=== PATIENT | male | born 1950 | race Caucasian/White ===

== ENCOUNTER → 2016-10-24 | Outpatient (CLI) | payer BC, OTHER | END | disposition home or self-care (01) | LOC: C.RDSM 12:32 | PROVIDERS: ATTEND Physical Medicine & Rehabilitation Sports Medicine | DX: M25.562 Pain in left knee (principal) ==

== ENCOUNTER 2021-03-05 07:01 | Observation (INO) ==
--- NOTE | 2021-02-23 09:49 | Anesthesiology Consultation ---
Date of Service February 23, 2021 Assessment & Plan (1) Encounter for pre-operative examination: Chart Review Chart Review: Acceptable Risk for Surgery and Patient NOT seen in Pre Admission Testing PLEASE NOTE CT SCAN FINDINGS: There is tracheal shift to the right and flattening and effacement of the left tracheal wall due to the large 4.6 cm thyroid nodule. Will order ECG DOS to see if patient is back in NSR. Consults Requested none History Surgery Operation Date: 03/05/21 07:15 Proposed Procedures p Left Thyroid Lobectomy - Raquel Canas MD Height/Weight Height: 6 ft 2 in Weight: 102.058 kg Allergies Allergy/AdvReac Type Severity Reaction Status Date / Time house dust mite Allergy Verified 02/22/21 16:03 No Known Drug Allergies Allergy Verified 02/22/21 16:03 Medications Home Medications Medication Instructions Recorded Confirmed Last Taken levalbuterol tartrate 45 1 puffs INH Q6H PRN 01/22/19 02/22/21 Unknown mcg/actuation aerosol inhaler (Xopenex HFA) glucos sul [id number] 2 cap PO BID 01/21/20 02/22/21 Unknown [Glucosamine Chondroitin] magnesium 200 mg PO BID 01/21/20 02/22/21 Unknown metoprolol succinate 25 mg 25 mg PO DAILY PRN 02/22/21 02/22/21 Unknown tablet,extended release 24 hr rivaroxaban 20 mg tablet (Xarelto) 20 mg PO QPM 02/22/21 02/22/21 Unknown Past Medical History Medical History (Updated 02/23/21 @ 09:46 by Armand Baires MD) Anticoagulant long-term use Bradycardia per pt, normal for him to run in 40s when in NSR. reports weekly episodes of A.fib and takes PRN metoprolol Encounter for pre-operative examination Osteoarthritis Paroxysmal A-fib follows with Dr. Garcia; on Xarelto Thyroid goiter Cardiology visit 01/26/21: 70-year-old man with intermittently recurrent paroxysmal atrial fibrillation who has fairly frequent but minimally symptomatic episodes of presumed recurrent atrial fibrillation. We reviewed intermittent and varying dose of beta-saulo when he is in atrial fibrillation, tapering the dose when he is in sinus rhythm to avoid bradycardia. He has not had any symptoms to indicate pacemaker placement would be imminent, but knows of the warning symptoms and the future likelihood a pacemaker will be necessary. We had previously discussed alternatives including antiarrhythmics and atrial fibrillation ablation, however his current symptoms remain minimal and continued conservative management with variable beta-blockade will be pursued for now. [id number] score of 2 (hypertension, age), risk of thromboembolic event is 2.2%. Since his risk of serious bleeding on Xarelto is in the 1% range, and he has had no bleeding issues, continue Xarelto use. Past Family History Family History Brother Hypertension Father Cancer Mother Asthma Other No family history of adverse response to anesthesia No family history of bleeding disorder Past Surgical History Surgical History History of colonoscopy History of foot surgery Rt History of torn meniscus of left knee Repaired 2009 Quadriceps tendon rupture Lt - repaired S/P Achilles tendon repair Lt S/P thyroid biopsy benign Social History Smoking Status: Never smoker Do You Dip or Chew Tobacco: No Hx Alcohol Use: Yes Alcohol type: beer alcohol intake frequency: a few times a week Hx Substance Use: No substance use type: does not use Testing Laboratory Results Laboratory Tests 02/22/21 02/22/21 02/22/21 07:16 07:16 07:16 WBC 6.68 Hgb 16.6 Hct 48.6 Plt Count 283 PT 10.7 INR 1.1 APTT 32.5 H Sodium 140 Potassium 4.2 Chloride 107 Carbon Dioxide 27 Electrocardiogram Date: 09/03/20 A fib. HR 90.
--- NOTE | 2021-03-04 14:59 | History & Physical Report ---
Date of Service March 04, 2021 Assessment & Plan (1) Left thyroid nodule: Plan: For left thyroid lobectomy. Cleared for surgery by cardiology. To hold Xarelto for 2 days prior to surgery. I explained the risks to the patient and his and they both desire to proceed with surgery. (2) Paroxysmal A-fib: (3) Anticoagulant long-term use: History of Present Illness Chief Complaint: Left thyroid nodule Primary Care Provider: Chico Navarro MD This 70-year-old gentleman had a left thyroid nodule that was noted on CT of the chest. It also showed compression of the left wall of the trachea with effacement. Needle biopsy was benign. However because of the compression the patient elected for thyroid lobectomy. Allergies Allergy/AdvReac Type Severity Reaction Status Date / Time house dust mite Allergy Verified 02/26/21 08:34 No Known Drug Allergies Allergy Verified 02/26/21 08:34 Home Medications Medication Instructions Recorded Confirmed Type levalbuterol tartrate 45 1 puffs INH Q6H PRN 01/22/19 02/26/21 History mcg/actuation aerosol inhaler (Xopenex HFA) glucos sul [id number]-C-Mn 2 cap PO BID 01/21/20 02/26/21 History [Glucosamine Chondroitin] magnesium 200 mg PO BID 01/21/20 02/26/21 History metoprolol succinate 25 mg 25 mg PO DAILY PRN 02/22/21 02/26/21 History tablet,extended release 24 hr rivaroxaban 20 mg tablet (Xarelto) 20 mg PO QPM 02/22/21 02/26/21 History Past Med/Surg History Medical History Anticoagulant long-term use Bradycardia Encounter for pre-operative examination Osteoarthritis Paroxysmal A-fib Thyroid goiter Surgical History History of colonoscopy History of foot surgery History of torn meniscus of left knee Quadriceps tendon rupture S/P Achilles tendon repair S/P thyroid biopsy Family History Brother Hypertension Father Cancer Mother Asthma Other No family history of adverse response to anesthesia No family history of bleeding disorder Social History Smoking Status: Never smoker Second Hand Exposure: Yes (as a child); Do You Dip or Chew Tobacco: No; Hx Alcohol Use: Yes Alcohol type: beer Hx Substance Use: No Preferred Language: Kosovan Communication Ability: Effective Medical Apparatus Model Maker Required: No Beliefs That Will Affect Care: None Current Living Situation: Spouse Feels Safe at Home: Yes Safety Concerns: Feels Safe At This Time Childhood Exposure to Second-Hand Smoke: Yes Assistive Devices: Glasses Physical Exam Constitutional: WD/WN, vitals as above Eyes: PERRL, conjunctivae normal, anicteric sclerae ENMT: external ear and nose normal, oropharynx normal Neck: Thyroid: + thyroid nodule (5 cm left thyroid nodule, firm, moves with swallowing, nontender) Respiratory: normal respiratory effort, lungs clear to auscultation Cardiovascular: Recent evaluation by cardiology for atrial fibrillation, cleared for surgery PG Care Time/CCT Total # of Minutes Spent Total Time Spent with Patient: Total time spent is greater than 50% in coordination of care (as documented) at patient's floor/unit and/or counseling patient: Coding Level of Care Code None Diagnoses Left thyroid nodule E04.1 Paroxysmal A-fib I48.0 Anticoagulant long-term use Z79.01
[~2021-03-05 07:01] MED LIST: LR 15ML/HR IV SCH; ceFAZolin 2000MG 2,000 MG/15 ML SYR IV SCH
[2021-03-05] MEDS ORDERED: PROPOFOL IV EMULSION 10 MG/ML 20 ML VIAL IV ONE (07:41)
[2021-03-05] MEDS ORDERED: DEXAMETHASONE SOD INJ 4 MG/ML VIAL ONE (07:41)
[2021-03-05] MEDS ORDERED: ONDANSETRON INJ 2 MG/ML 2 ML VIAL ONE (07:41)
[2021-03-05] MEDS ORDERED: MIDAZOLAM HCL 1 MG/ML 2ML VIAL ONE (07:41)
[2021-03-05] MEDS ORDERED: ROCURONIUM BROMIDE 10 MG/ML 5 ML VIAL IV ONE (07:41)
[2021-03-05] MEDS ORDERED: LIDOCAINE 2% 2 ML VIAL/AMP(20MG/ML) INFIL ONE (07:41)
[2021-03-05] MEDS ORDERED: fentaNYL citrate 100 MCG/2 ML VIAL ONE ×3 (07:41→09:36)
--- NOTE | 2021-03-05 08:13 | History & Physical Bridge Note ---
Date of Service March 05, 2021 History & Physical Bridge Note I have examined the patient, reviewed the History & Physical and in the interval since the performance of the History & Physical I have noted the following changes of clinical significance: no changes noted
[2021-03-05] MEDS ORDERED: ONDANSETRON INJ 2 MG/ML 2 ML VIAL IV PRN ×2 (08:16→17:55)
[2021-03-05] MEDS ORDERED: ATROPINE SULFATE 0.1 MG/ML 10ML SYR IV PRN (08:16)
[2021-03-05] MEDS ORDERED: ePHEDrine sulfate 50 MG/ML AMP IV PRN (08:16)
[2021-03-05] MEDS ORDERED: HYDROmorphone INJ 2 MG/ML SYR/VIAL IV PRN (08:16)
[2021-03-05] MEDS ORDERED: LIDOCAINE 2%/EPINEPHRINE 1:100,000 20ML ONE (08:17)
[2021-03-05] MEDS ORDERED: BACITRACIN OINT 15 GM TUBE ONE (08:22)
[2021-03-05] MEDS ORDERED: SUCCINYLCHOLINE CHLORIDE 20 MG/ML 10 ML VIAL IV ONE (09:17)
[2021-03-05] MEDS ORDERED: PHENYLEPHRINE HCL 10 MG/ML VIAL ONE (09:18)
[2021-03-05] MEDS ORDERED: ePHEDrine sulfate 50 MG/ML AMP ONE (09:18)
[2021-03-05] MEDS ORDERED: ESMOLOL HCL INJ 10 MG/ML 10ML VIAL IV ONE (10:14)
[2021-03-05] MEDS ORDERED: LABETALOL HCL IV 5 MG/ML 20ML IV ONE (10:14)
[2021-03-05] MEDS ORDERED: HEMADERM ENT APPLICATOR KIT TOP ONE (10:52)
[2021-03-05] MEDS: fentaNYL citrate 100 MCG/2 ML VIAL IV PRN ×2 (11:54→11:59)
--- NOTE | 2021-03-05 11:54 | Operative Report ---
PG Post Operative Report Pre & Post Diagnosis Operation Date: 03/05/21 08:40 Pre-Op Diagnosis: Left Thyroid Nodule Post-Op Diagnosis: Left Thyroid Nodule I identified the patient and participated in the time-out.: Yes Procedure Operation Date: 03/05/21 08:40 Actual Procedures p Left Thyroid Lobectomy(Left) - Raquel Canas MD Surgeon Raquel Canas MD Cocoa Bean Cleaner Dr. Downing Estimated Blood Loss 100 Findings Consistent with Post-Op Diagnosis Benign colloid nodule on frozen section Specimens Left thyroid nodule Drains Large [place] Anesthesia Type General Complications None Disposition Accompanied Patient To Recovery: Yes Indications 70-year-old gentleman with 4.7 cm left thyroid nodule. Benign on needle biopsy. However there was compression on CT scan showing effacement of the left tracheal wall. Description of Procedure He was brought to the operating room, properly identified, prepped and draped in the usual sterile manner after general endotracheal anesthesia. The Nims monitor electrodes were placed in the nerve monitor was used through the entire procedure. The incision was 2 cm above the sternal notch horizontally in a routine thyroid incision. The incision was made using the 15 blade carried down through the subcutaneous and then the platysma. Further dissection was continued using the guarded Bovie elevating the skin flap superiorly and then the skin flap inferiorly. Midline dissection was performed. The strap muscles were identified and on both sides the sternal hyoid and then the sternothyroid muscles and retracting the left strap muscles laterally exposing the thyroid and the nodule. Dissection was started at the superior pole where the superior thyroidal artery and the superior thyroidal veins were isolated, clamped, and divided, and then tied with silk ties. Smaller vessels were divided using the harmonic scalpel. The superior pole was freed in this manner. The middle thyroidal vein was encountered and then dissection was further performed inferiorly exposing the inferior thyroidal vein and artery finding the parathyroid gland and then dissecting this off of the thyroid along with artery and vein and clamping and dividing the smaller branches of the artery and vein into the inferior pole of the thyroid gland. The parathyroid gland was preserved. Dissection was continued further superiorly isolating the nodule. At this point the nodule was delivered and was noted to be pedunculated off of the inferior half of the thyroid lobe. Therefore the thyroid lobe was transected leaving the upper half of the left lobe and then dividing the thyroid gland and sending the lower half of the left lobe of the thyroid with a nodule to pathology. Frozen section showed benign colloid nodule with no sign of malignancy. At this point the nerve stimulator was used and action potential was obtained by stimulating the area underneath the thyrohyoid he is in an action potential was obtained though the nerve was not actually seen. It was elected at this time to leave upper half of her left thyroid gland. Wound was irrigated copious amounts of saline. Several bleeders from the thyroid bed were controlled using the bipolar cautery. Hematoma powder was also used for hemostasis. With the hemostasis controlled a Nneka drain was placed in the depths of the wound. Incision was closed with interrupted 4-0 Vicryl sutures on the platysma layer and then interrupted 5-0 nylon sutures on the skin. The drain was sewn in with interrupted 3-0 Prolene sutures. A light pressure dressing was placed around the neck. He tolerated the procedure well and was taken recovery area in satisfactory condition. His voice was noted to be of good quality. I attest to the content of the Intraoperative Record and any orders documented therein. Any exceptions are noted below.
[2021-03-05] MEDS ORDERED: METOPROLOL TARTRATE 1 MG/ML VIAL IV ONE ×3 (12:03→13:42)
[2021-03-05] MEDS ORDERED: METOPROLOL TARTRATE 1 MG/ML VIAL IV STA ×3 (13:37→14:59)
[2021-03-05] MEDS ORDERED: METOPROLOL SUCC 25MG EXT REL TAB PO STA (13:39)
[2021-03-05] MEDS: METOPROLOL TARTRATE 1 MG/ML VIAL IV PRN ×2 (13:44→14:30)
--- NOTE | 2021-03-05 13:51 | Anesthesiology Progress Note ---
Date of Service March 05, 2021 Anesthesia Post Procedure Vital Signs Vital Signs: Temp Pulse Pulse Resp BP BP Pulse Ox 03/05/21 13:38 122 H 115/72 03/05/21 13:20 105 H 16 108/74 95 03/05/21 13:10 120 H 16 103/77 95 03/05/21 13:00 96 H 18 114/72 94 03/05/21 12:50 99 H 18 107/74 94 03/05/21 12:40 115 H 19 117/73 93 03/05/21 12:30 101 H 13 122/82 96 03/05/21 12:20 130 H 19 107/72 96 03/05/21 12:10 128 H 12 124/75 96 03/05/21 12:00 128 H 18 128/86 97 03/05/21 11:50 128 H 18 130/89 97 03/05/21 11:44 36.3 C L 128 H 18 125/87 95 03/05/21 07:34 36.7 C 66 20 171/106 H 98 Transfer of Care Handoff Completed per policy Notes Mental Status: alert / awake / arousable and participated in evaluation Patient Amnestic to Procedure: Yes Nausea / Vomiting: adequately controlled Pain: adequately controlled Airway Patency, RR, SpO2: stable & adequate BP & HR: stable & adequate Hydration State: stable & adequate Anesthetic Complications: no major complications apparent and see Notes below Notes: Pt presently awake VSS in PACU. Has had tachycardia with HR high 120's. Appears to be atrial flutter, c/w previous diagnosis. Treated with IV labetalol, metoprolol with limited effect. Discussed with surgeon and consulted Cardio logy. Dr Banegas visited to evaluate pt. Opted to treat with additional metoprolol and anticipate discharge this afternoon. Discussed with pt who is agreeable and eager to be discharged. Will d/c home with escort.
--- NOTE | 2021-03-05 15:55 | Electrocardiogram Report ---
Test Reason : Blood Pressure : / mmHG Vent. Rate : 071 BPM Atrial Rate : 284 BPM P-R Int : 000 ms QRS Dur : 080 ms QT Int : 420 ms P-R-T Axes : -83 -26 010 degrees QTc Int : 456 ms Atrial flutter with 4:1 A-V conduction Abnormal ECG When compared with ECG of 03-JUN-2009 10:00, Atrial flutter has replaced Sinus rhythm QT has lengthened Confirmed by Corey Banegas ([id number]) on 03/05/2021 3:54:36 PM Referred By: Raquel Canas Confirmed By:Corey Banegas
[2021-03-05] MEDS ORDERED: dilTIAZem HCL 30 MG TAB PO ONE ×2 (16:00→16:48)
[2021-03-05] MEDS ORDERED: oxyCODONE/ACETAMINOPHEN 5mg/325mg TAB PO PRN (17:55)
[2021-03-05] MEDS ORDERED: METOPROLOL SUCC 25MG EXT REL TAB PO PRN (19:32)
[2021-03-05] MEDS: MAGNESIUM OXIDE 400 MG TAB PO SCH (20:06)
[2021-03-05] MEDS ORDERED: GLUCOS SUL PO SCH (21:00)
[2021-03-05] MEDS ORDERED: [UNRECOGNIZED DRUG - OTHER] PO SCH (21:00)
[2021-03-06] MEDS: MAGNESIUM OXIDE 400 MG TAB PO SCH ×3 (07:28→12:24)
--- NOTE | 2021-03-06 08:55 | Ears,Nose,Throat Progress Note ---
Date of Service March 06, 2021 Assessment & Plan (1) Left thyroid nodule: Plan: frozen benign colloid nodule, voice good, drain in place, no sign of hematoma (2) Paroxysmal A-fib: Plan: now in flutter, will keep until seen by Dr. Baker (3) Anticoagulant long-term use: Plan: To start Xarelto tomorrow Admission and Anticipated Discharge Date Admission Date: March 05, 2021 Subjective Minimal pain but still tachycardic. Eating well. Physical Exam Constitutional: WD/WN, vitals as above Eyes: PERRL, conjunctivae normal, anicteric sclerae ENMT: external ear and nose normal, oropharynx normal Neck: Drain in place, flaps flat Respiratory: normal respiratory effort, lungs clear to auscultation Cardiovascular: Rate/Rhythm: + irregularly irregular (atrial flutter,varies from 80 to 130) Results & Data ([facility]) Vital Signs (Past 12 Hours) Vital Signs Temp Pulse Pulse Resp BP Pulse Ox Pulse Ox 03/06/21 08:00 98 03/06/21 04:13 36.7 C 101 H 18 122/87 94 03/05/21 23:51 112 H 03/05/21 23:33 36.6 C 90 18 122/66 95
--- NOTE | 2021-03-06 12:34 | Cardiology Consultation ---
Date of Consultation March 06, 2021 History of Present Illness Reason for Consultation: Postoperative atrial flutter Requesting Physician: Sean Garcia is the patient's primary school secretary Attending Physician: Raquel Canas MD History of Present Illness Patient was admitted for a partial lobectomy of his thyroid. He is known to have paroxysmal atrial fibrillation. In addition he is known to be relatively bradycardic in sinus rhythm but when he has A. fib it tends to be slightly faster. He went into atrial flutter last evening with more rapid rates in the 130s. As he has had in the past he is pretty much unaware that he is in flutter other than checking his heart rate. Denies any lightest dizziness presyncope syncope. Has any chest pain just pressure chest heaviness. Walking to the bathroom he feels well. He has no lower extremity edema denies any significant discomfort. The rest of review of systems is negative Allergies Allergy/AdvReac Type Severity Reaction Status Date / Time house dust mite Allergy Verified 03/05/21 07:41 No Known Drug Allergies Allergy Verified 03/05/21 07:41 Home Medications Medication Instructions Recorded Confirmed Type levalbuterol tartrate 45 1 puffs INH Q6H PRN 01/22/19 03/05/21 History mcg/actuation aerosol inhaler (Xopenex HFA) glucos sul [id number]-C-Mn 2 cap PO BID 01/21/20 03/05/21 History [Glucosamine Chondroitin] magnesium 200 mg PO BID 01/21/20 03/05/21 History metoprolol succinate 25 mg 25 mg PO DAILY PRN 02/22/21 03/05/21 History tablet,extended release 24 hr rivaroxaban 20 mg tablet (Xarelto) 20 mg PO QPM 02/22/21 03/05/21 History hydrocodone 5 mg-acetaminophen 325 1 tab PO Q4H PRN #20 tab 03/05/21 Rx mg tablet Patient History Medical History Anticoagulant long-term use Bradycardia per pt, normal for him to run in 40s when in NSR. reports weekly episodes of A.fib and takes PRN metoprolol Encounter for pre-operative examination Osteoarthritis Paroxysmal A-fib follows with Dr. Garcia; on Xarelto Thyroid goiter Surgical History History of colonoscopy History of foot surgery History of torn meniscus of left knee Quadriceps tendon rupture S/P Achilles tendon repair S/P thyroid biopsy Family History Brother Hypertension Father Cancer Mother Asthma Other No family history of adverse response to anesthesia No family history of bleeding disorder Social History Smoking Status: Never smoker Second Hand Exposure: Yes (as a child); Do You Dip or Chew Tobacco: No; Hx Alcohol Use: Yes Alcohol type: beer Hx Substance Use: No Preferred Language: Urdu Communication Ability: Effective Balloon Pilot Required: No Beliefs That Will Affect Care: None Current Living Situation: Spouse Feels Safe at Home: Yes Safety Concerns: Feels Safe At This Time Childhood Exposure to Second-Hand Smoke: Yes Assistive Devices: None Results & Data ([facility]) Vital Signs (Past 12 Hours) Vital Signs Temp Pulse Resp BP Pulse Ox Pulse Ox 03/06/21 08:00 98 03/06/21 07:00 36.8 C 110 H 18 122/71 96 03/06/21 04:13 36.7 C 101 H 18 122/87 94 (1) Paroxysmal A-fib with atrial flutter this admission (2) Bradycardia: (3) Syncope: (4) Left thyroid nodule: (5) POD #1 partial thyroidectomy From my standpoint he can be discharged home. He uses Toprol as a pill in the pocket when he is in atrial fibrillation or or atrial flutter. He is off his Xarelto currently and from a surgical standpoint will restart it tomorrow I discussed in the risk of stroke off anticoagulation for a day is relatively small. We also discussed if he needs additional beta-blockers that he can take metoprolol as needed. We do know when he is in sinus rhythm he is relatively bradycardic in the 40s and low 50s. There has been a discussion in the past about the potential need for pacemaker implantation if he had unexplained syncopal episodes or lightheadedness or dizziness with slower heart rates. He can follow-up with Dr. Garcia as an outpatient. All this was discussed with the patient in detail as well as Dr. Canas Physical Exam GENERAL: Patient in no acute distress. HEENT: Head is atraumatic, normocephalic. NECK: No JVD. JVP is not elevated. Carotid upstrokes are + 2 bilaterally. No bruits are noted. CHEST/LUNGS: Clear to auscultation throughout all lung cerrato. No wheezes, rales, or crackles. CVS: S1 and S2 are irregularly irregular without obvious murmurs, gallops, or rubs. ABDOMINAL EXAM: Bowel sounds are present. No masses or tenderness. EXTREMITIES: No clubbing or cyanosis. No edema.
--- NOTE | 2021-03-07 17:52 | Discharge Summary ---
Date of Service March 07, 2021 Admission HPI Per Admitting Provider This 70-year-old gentleman had a left thyroid nodule that was noted on CT of the chest. It also showed compression of the left wall of the trachea with effacement. Needle biopsy was benign. However because of the compression the patient elected for thyroid lobectomy. Admission Exam (Per Admitting) Constitutional WD/WN, vitals as above Eyes PERRL, conjunctivae normal, anicteric sclerae ENMT external ear and nose normal, oropharynx normal Neck Thyroid: + thyroid nodule (5 cm left thyroid nodule, firm, moves with swallowing, nontender) Respiratory normal respiratory effort, lungs clear to auscultation Cardiovascular Rate/Rhythm: + irregularly irregular (atrial flutter,varies from 80 to 130) Discharge Data Consultations 03/05/21 17:55 Consult Cardiology Routine Procedures Performed Operation Date: 03/05/21 08:40 Actual Procedures p Left Thyroid Lobectomy(Left) - Raquel Canas MD Hospital Course (1) Left thyroid nodule: frozen benign colloid nodule, voice good, drain in place, no sign of hematoma dicharged after 24 hr observation,no bleeding, will remove drain Monday (2) Paroxysmal A-fib: now in flutter, seen by Dr. Baker, recommended discharge to home, continue beta saulo (3) Anticoagulant long-term use: To start Xarelto tomorrow
--- NOTE | 2021-03-19 07:48 | Operative Report ---
PG Post Operative Report Pre & Post Diagnosis Operation Date: 03/05/21 08:40 Pre-Op Diagnosis: Left Thyroid Nodule Post-Op Diagnosis: Left Thyroid Nodule I identified the patient and participated in the time-out.: Yes Procedure Operation Date: 03/05/21 08:40 Actual Procedures p Left Thyroid Lobectomy(Left) - Raqule Canas MD Surgeon aRquel Canas MD Imagery Analyst Dr. Downing Estimated Blood Loss 100 Findings Consistent with Post-Op Diagnosis Specimens Thyroid lobectomy Anesthesia Type General Disposition Accompanied Patient To Recovery: Yes Description of Procedure This is an addendum to the operative summary. Dr. Downing assisted in greater than 80% of the procedure by initiating, making the incision and doing the initial dissection and the lobectomy. I performed the closure. I attest to the content of the Intraoperative Record and any orders documented therein. Any exceptions are noted below.
== END 2021-03-06 14:53 | disposition home or self-care (01) ==
LOC: 2S 07:01 → ASU 07:01